=== PATIENT | female | born 1975 ===

== ENCOUNTER 2018-03-23 08:18 | Outpatient (CLI) | payer OTHER ==
[~2018-03-23] VITALS: Ht 149.9 cm; Wt 55.3 kg
== END 2018-03-23 08:40 | disposition home or self-care (01) ==
LOC: OFIC 805 08:18
DX: R04.0 Epistaxis (principal); R09.81 Nasal congestion; J30.89 Other allergic rhinitis

== ENCOUNTER 2018-04-03 11:43 | Outpatient (CLI) | payer OTHER ==
[~2018-04-03] VITALS: Ht 121.9 cm; Wt 55.3 kg
== END 2018-04-03 12:00 | disposition home or self-care (01) ==
LOC: OFIC 805 11:43
DX: J30.89 Other allergic rhinitis (principal); R09.81 Nasal congestion; R04.0 Epistaxis

== ENCOUNTER 2018-05-22 14:35 | Outpatient (CLI) | payer OTHER | END 2018-05-22 14:50 | disposition home or self-care (01) | LOC: OFIC 805 14:35 | DX: J30.89 Other allergic rhinitis (principal); R04.0 Epistaxis; R09.81 Nasal congestion ==

== ENCOUNTER 2018-06-16 07:12 | Outpatient (CLI) | payer OTHER ==
[~2018-06-16] VITALS: Ht 121.9 cm; Wt 55.3 kg
== END 2018-06-16 07:30 | disposition home or self-care (01) ==
LOC: OFIC 805 07:12
DX: R09.81 Nasal congestion (principal); J30.89 Other allergic rhinitis; J34.3 Hypertrophy of nasal turbinates; R04.0 Epistaxis